=== PATIENT | male | born 1965 | race Caucasian/White ===

== ENCOUNTER 2019-11-20 23:26 | Emergency (ER) | payer OTHER ==
[~2019-11-20] VITALS: Ht 185.4 cm; Wt 141.5 kg
--- NOTE | 2019-11-20 23:38 | NUR ---
PT AAOX4. AMBULATORY. BIBSELF C/O LOWER ABDOMINAL PAIN X1 DAY. TOOK OTC LAXATIVE X3HR DETAILER FURNITURE. PT STATED HE WAS ABLE TO HAVE BM. NO ACUTE DISTRESS NOTED. MD AT BEDSIDE FOR EVAL, AWAITING ORDERS.
[2019-11-21] MEDS ORDERED: IV NS 0.9% 1,000 ML BAG IV ONE
[2019-11-21 00:27] LABS: BASOPHILS # (AUTO) 0.1 /CMM (0.0-0.2); EOSINOPHILS % (AUTO) 2.2 % (0.0-6.0); HEMATOCRIT 46 % (39-51); HEMOGLOBIN 15.3 g/dL (13.5-17.5); LYMPHOCYTES # (AUTO) 2.3 /CMM (0.8-4.8); LYMPHOCYTES % (AUTO) 17.6 % (20.0-44.0); MEAN CORPUSCULAR HGB CONC 33 g/dl (31.0-36.0); MEAN CORPUSCULAR VOLUME 87 fL (80-96); MONOCYTES # (AUTO) 0.7 /CMM (0.1-1.30); MONOCYTES % (AUTO) 5.1 % (2.0-12.0); NEUTROPHILS # (AUTO) 9.7 /CMM (1.8-8.9); NEUTROPHILS % (AUTO) 74.1 % (43.0-81.0); PLATELET COUNT (AUTO) 142 /CMM (150-450); RED BLOOD CELL COUNT(AUTO) 5.35 MIL/uL (4.5-6.0); WHITE BLOOD COUNT (AUTO) 13.1 K/uL (4.3-11.0)
[2019-11-21 00:46] LABS: ALBUMIN 3.7 g/dL (3.4-5.0); BILIRUBIN,DIRECT 0.1 mg/dL (0.0-0.2); BILIRUBIN,TOTAL 0.4 mg/dL (0.2-1.0); CALCIUM, SERUM 8.9 mg/dL (8.5-10.1); CREATININE 1.3 mg/dL (0.6-1.3); POTASSIUM 3.8 mmol/L (3.5-5.1); TOTAL PROTEIN, SERUM 7.2 g/dL (6.4-8.2)
[2019-11-21] MEDS ORDERED: IOHEXOL-300 100 ML VIAL IV ONE (00:50)
[2019-11-21] MEDS ORDERED: IV NS 0.9% 250 ML IV ONE (00:50)
[2019-11-21] MEDS ORDERED: CT SWABBABLE VALVE TRANS SET 1 EA INFUS.SET MC ONE (00:50)
--- NOTE | 2019-11-21 00:50 | NUR ---
BROUGHT TO CT
[2019-11-21] MEDS ORDERED: CIPROFLOXACIN IV RTU 200 ML IV ONE (01:35)
[2019-11-21] MEDS ORDERED: METRONIDAZOLE 500MG/ NS 100ML 100 ML IV ONE (01:35)
[2019-11-21] MEDS ORDERED: FLAGYL/NS RTU 500 MG/100 ML PIGGYBACK IV ONE (02:00)
[2019-11-21] MEDS ORDERED: CIPROFLOXACIN IV RTU 400 MG in PREMIX 1 EA IV SCH (02:00)
[2019-11-21] MEDS ORDERED: METRONIDAZOLE 500 MG TABLET ONE (02:56)
[2019-11-21] MEDS ORDERED: METRONIDAZOLE 500 MG TABLET PO ONE (03:00)
--- NOTE | 2019-11-21 03:01 | NUR ---
Patient discharged to home in stable condition. Written and verbal after care instructions given. Patient verbalizes understanding of instruction and RX. Pt ambulated with steady gait. vss.
--- NOTE | 2019-11-21 03:01 | NUR ---
IV removed. Catheter intact and site benign. Pressure and 4x4 applied to site. No bleeding noted.
[2019-11-21 03:02] VITALS: BP 151/69
== END 2019-11-21 03:46 | disposition home or self-care (01) ==
LOC: ER 23:32
DX: K57.32 Diverticulitis of large intestine without perforation or abscess without bleeding (principal); K74.60 Unspecified cirrhosis of liver; R10.30 Lower abdominal pain, unspecified; R19.7 Diarrhea, unspecified; E11.9 Type 2 diabetes mellitus without complications; Z88.0 Allergy status to penicillin
CPT/HCPCS: 36415; 74177; 80048; 80076; 83690; 85025; 96361; 96365; 99285; A4216; J0744 ×2; J7030; J7050; Q9967